=== PATIENT | male | born 1960 | race African-American/Black ===

== ENCOUNTER 2019-03-19 02:17 | Emergency (ER) | payer SELFPAY ==
[2019-03-19] MEDS ORDERED: NS 0.9% 1000 ML** 2,000 ML IV ONE (03:13)
[2019-03-19] MEDS ORDERED: Ondansetron INJ* 2 MG/ML VIAL IV ONE (03:13)
--- NOTE | 2019-03-19 03:21 | ED ---
Abdominal Pain/Male - HPI Summary HPI Summary: The patient is a 58 y/o M presenting to [facility] with a chief complaint of diffuse abd pain with nausea and vomiting since 03/16/19. He reports that he has since had a decreased appetite, but he denies any fever or diarrhea. He hasnt taken Prevacid in two days. He notes that he has hx of stomach ulcer, and he also has been working with mold at work and isnt sure if that is the reason why hes sick. Currently, his symptoms are rated 7/10 in severity. There are no aggravating or alleviating factors. PMHx: ulcer. Former smoker, occasional EtOH , no substance use. Medications reviewed. Allergies noted. - History of Current Complaint Chief Complaint: EDAbdPain Stated Complaint: NAUSEA/VOMITING PER PT Time Seen by Provider: 03/19/19 03:08 Hx Obtained From: Patient Onset/Duration: Sudden Onset, Lasting Days - three, Still Present Timing: Constant, Lasting Days Severity Initially: Mild Severity Currently: Moderate Pain Intensity: 7 Pain Scale Used: 0-10 Numeric Location: Diffuse Radiates: No Character: Dull Aggravating Factor(s): Nothing Alleviating Factor(s): Nothing Associated Signs And Symptoms: Positive: Decreased Appetite, Nausea, Vomiting. Negative: Fever, Diarrhea - Allergies/Home Medications Allergies/Adverse Reactions: Allergies Allergy/AdvReac Type Severity Reaction Status Date / Time No Known Allergies Allergy Verified 03/19/19 02:23 PMH/Surg Hx/FS Hx/Imm Hx Endocrine/Hematology History: Denies: Hx Diabetes Cardiovascular History: Denies: Hx Hypertension Respiratory History: Denies: Hx Asthma, Hx Chronic Obstructive Pulmonary Disease (COPD) GI History: Reports: Hx Ulcer Sensory History: Denies: Hx Legally Blind, Hx Deafness Opthamlomology History: Denies: Hx Legally Blind EENT History: Denies: Hx Deafness - Surgical History Surgical History: Yes Surgery Procedure, Year, and Place: ulcer cauterization Infectious Disease History: No Infectious Disease History: Denies: Traveled Outside the [place] in Last 30 Days - Family History Known Family History: Positive: Diabetes - Social History Alcohol Use: Occasionally Hx Substance Use: No Substance Use Type: Reports: None Hx Tobacco Use: No Smoking Status (MU): Former Smoker Review of Systems Negative: Fever Positive: Abdominal Pain - diffuse, Vomiting, Nausea, Other - decreased appetite. Negative: Diarrhea All Other Systems Reviewed And Are Negative: Yes Physical Exam - Summary Physical Exam Summary: Appearance: Well-appearing, Well-nourished, lying in bed comfortably Skin: Warm, dry, no obvious rash Eyes: sclera anicteric, no conjunctival pallor ENT: mucous membranes moist, pharynx appears normal Neck: Supple, nontender Respiratory: Clear to auscultation, no signs of respiratory distress Cardiovascular: Precordium seems hyperdynamic but heart rate is normal. No murmurs. Normal distal pulses in tibial and radial bilaterally. Abdomen: Soft, nontender, normal active bowel sounds present Musculoskeletal: Normal, Strength/ROM Intact Neurological: A&Ox3, awake and alert, mentation is normal, speech is fluent and appropriate Psychiatric: affect is normal, does not appear anxious or depressed Triage Information Reviewed: Yes Vital Signs On Initial Exam: Initial Vitals Temp Pulse Resp BP Pulse Ox 98.8 F 90 16 145/99 99 03/19/19 02:21 03/19/19 02:21 03/19/19 02:21 03/19/19 02:21 03/19/19 02:21 Vital Signs Reviewed: Yes Diagnostics - Vital Signs Vital Signs Temp Pulse Resp BP Pulse Ox 03/19/19 02:21 98.8 F 90 16 145/99 99 - Laboratory Result Diagrams: 03/19/19 05:25 03/19/19 05:25 Lab Statement: Any lab studies that have been ordered have been reviewed, and results considered in the medical decision making process. Re-Evaluation - Re-Evaluation First Eval Re-Evaluation Time: 07:15 Change: Unchanged Comment: We discussed plan for discharge. Abdominal Pain Male Course/Dx - Course Course Of Treatment: Pt is a 58 y/o M with cc of nausea, vomiting, and diffuse abd pain over the last three days possibly secondary to ulcer cauterized a few years ago. Upon physical exam, the pt exhibits precordium that seems hyperdynamic with normal heart rate. In the ED course, the pt was administered fluids and Zofran. Blood work reveals RBCs of 5.51, MCH of 32, creatinine of 1.35, and glucose of 115. We discussed all results and plan for discharge with rx for Prevacid and Zofran. He understands and agrees with this plan. Dx is non- ulcer dyspepsia and vomiting. - Diagnoses Provider Diagnoses: Non-ulcer dyspepsia, Vomiting Discharge ED - Sign-Out/Discharge Documenting (check all that apply): Patient Departure - Patient will be discharged home. Patient Received Moderate/Deep Sedation with Procedure: No - Discharge Plan Condition: Good Disposition: HOME Prescriptions: Lansoprazole [Prevacid] 30 mg PO DAILY #30 capsule. Ondansetron ODT TAB* [Zofran 4 MG Odt TAB*] 8 mg PO Q6H PRN #12 tab.odt PRN Reason: Nausea Patient Education Materials: Acute Abdominal Pain (ED) Forms: *Work Release Referrals: [facility] [Outside] - If Needed - Billing Disposition and Condition Condition: GOOD Disposition: Home - Attestation Statements Document Initiated by Chad: Yes Documenting Scribe: Mary Reynoso Provider For Whom Chad is Documenting (Include Credential): Dr. Zak Armando MD Scribe Attestation: Mary Greco scribed for Dr. Zak Armando MD on 03/19/19 at 1848. Scribe Documentation Reviewed: Yes Provider Attestation: The documentation as recorded by the Mary cuellar accurately reflects the service I personally performed and the decisions made by me, Dr. Zak Armando MD Status of Chad Document: Viewed
[2019-03-19 05:35] LABS: ABS Monocytes 0.5 10^3/ul (0-0.8); ABS Neutrophils 7.2 10^3/ul (1.5-7.7); Hematocrit 52 % (42-52); Hemoglobin 17.4 g/dL (14.0-18.0); Lymphocyte % 11.9 %; Mean Corpuscular HGB Conc 34 g/dL (31-36); Mean Corpuscular Hemoglobin 32 pg (27-31); Mean Corpuscular Volume 94 fL (80-94); Mean Platelet Volume 10.3 fL (7.4-10.4); Nucleated Red Blood Cells % 0.1; Platelet Count 197 10^3/uL (150-450); Red Blood Count 5.51 10^6 /uL (4.18-5.48); Red Cell Distribution Width 14 % (10-15); White Blood Count 8.8 10^3/uL (3.5-10.8)
[2019-03-19 05:51] LABS: Albumin 4.2 g/dL (3.2-5.2); Albumin/Globulin Ratio 1.4 (1-3); BUN/Creatinine Ratio 11.1 (8-20); Calcium 8.8 mg/dL (8.6-10.3); EGFR African American 66.2 (>60); EGFR Non-African American 54.7 (>60); Globulin 2.9 g/dL (2-4); Potassium 4.5 mmol/L (3.5-5.0); Total Bilirubin 0.4 mg/dL (0.2-1.0); Total Protein 7.1 g/dL (6.4-8.9)
[2019-03-19 07:19] VITALS: BP 124/67
== END 2019-03-19 07:15 | disposition home or self-care (01) ==
LOC: ED 02:17
DX: R10.13 Epigastric pain (principal); R11.10 Vomiting, unspecified; Z87.891 Personal history of nicotine dependence; Z79.899 Other long term (current) drug therapy
CPT/HCPCS: 36415; 80053; 83690; 85025; 96361; 96374; 99282; J2405